=== PATIENT | female | born 1935 | race Caucasian/White ===

== ENCOUNTER → 2022-02-07 | Outpatient (CLI) | payer MEDICARE | END | disposition home or self-care (01) | LOC: RADPETMAIN 12:35 | PROVIDERS: ATTEND Radiology Radiation Oncology | DX: C44.629 Squamous cell carcinoma of skin of left upper limb, including shoulder (principal); C44.621 Squamous cell carcinoma of skin of unspecified upper limb, including shoulder; Z92.3 Personal history of irradiation; Z98.890 Other specified postprocedural states; Z85.828 Personal history of other malignant neoplasm of skin | CPT/HCPCS: 78815; A9552 ==

== ENCOUNTER 2022-03-03 08:42 | Day surgery (SDC) | payer MEDICARE ==
[2022-03-03 09:28] VITALS: RESP 18; TEMP 97.7
[2022-03-03 11:02] VITALS: BP 149/89; PULSE 97
--- NOTE | 2022-03-03 12:39 | US ---
EXAMINATION TYPE: US biopsy soft tissue/muscle DATE OF EXAM: 03/03/2022 HISTORY: Left forearm soft tissue mass. FINDINGS: Maximal barrier technique was utilized. Hand hygiene achieved with soap and water and alco hol-based hand rub. The skin overlying a suitable path to the patient's mass in the soft tissues of t he left forearm was localized with ultrasound and the overlying skin prepped and draped. Ultrasound was utilized with sterile technique. Lidocaine was used for local anesthesia. A skin valdo was made with a scalpel. An 20-gauge needle was advanced under direct ultrasound guidance and core specimen o btained of the mass. Specimen submitted in formalin to Pathology. Following the procedure, hemostas is achieved and the patient is discharged in stable condition without complication. IMPRESSION:STATUS POST ULTRASOUND GUIDED CORE BIOPSY OF left forearm soft tissue mass MASS, PATHOLOGY IS PENDING. THIS PROCEDURE IS PERFORMED BY THE UNDERSIGNED.
== END 2022-03-03 10:45 | disposition home or self-care (01) ==
LOC: RADPROMAIN 08:42
PROVIDERS: ATTEND Radiology Radiation Oncology
DX: C44.629 Squamous cell carcinoma of skin of left upper limb, including shoulder (principal)
CPT/HCPCS: 20206; 36415; 76942; 88305